=== PATIENT | female | born 1985 ===

== ENCOUNTER 2017-07-10 19:18 | Emergency (ER) | payer MEDICAID ==
[2017-07-10 19:49] VITALS: TEMP 98.4; O2SAT 98
[2017-07-10] MEDS ORDERED: Oxycodone/Acetaminophen 5/325 mg Tab PO STA (20:14)
[2017-07-10] MEDS ORDERED: Oxycodone/Acetaminophen 5/325 mg Tab ONE (20:19)
--- NOTE | 2017-07-10 20:20 | C.PDOC ---
History Of Present Illness 31 yr old female presents to the ER with complaints of chronic back pain. 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 Patient reports she recently moved to [place] from [place] and does not have a doctor yet. In [place] she took Oxycodone 15 mg PO Q4. Last MRI was last year, since she has had no new symptoms. Patient denies abdominal pain , diarrhea, dysuria, urinary or bowl incontinence, weakness or numbness. Time Seen by Provider: 07/10/17 19:54 Chief Complaint (Nursing): Back Pain History Per: Patient History/Exam Limitations: no limitations Onset/Duration Of Symptoms: Days Current Symptoms Are (Timing): Still Present Recent travel outside of the [place]: No Past Medical History Reviewed: Historical Data, Nursing Documentation, Vital Signs Vital Signs: Last Vital Signs Temp 98.4 F 07/10/17 19:42 Pulse 81 07/10/17 20:31 Resp 16 07/10/17 20:31 BP 124/85 07/10/17 20:31 Pulse Ox 98 07/10/17 21:11 - Medical History PMH: Back Problems Family History: States: No Known Family Hx - Social History Hx Alcohol Use: No Hx Substance Use: No - Immunization History Hx Tetanus Toxoid Vaccination: No Hx Influenza Vaccination: No Hx Pneumococcal Vaccination: No Review Of Systems Except As Marked, All Systems Reviewed And Found Negative. Gastrointestinal: Negative for: Abdominal Pain, Diarrhea Genitourinary: Negative for: Dysuria, Incontinence Musculoskeletal: Positive for: Back Pain (Chronic ) Neurological: Negative for: Weakness, Numbness Physical Exam - Physical Exam Appears: Non-toxic, No Acute Distress Skin: Warm, Dry, No Rash Head: Atraumatic, Normacephalic Eye(s): bilateral: Normal Inspection, EOMI Nose: Normal Oral Mucosa: Moist Neck: Normal ROM, Paracervical Tenderness, Supple Chest: Symmetrical, No Tenderness Cardiovascular: Rhythm Regular, No Murmur Respiratory: Normal Breath Sounds, No Rales, No Rhonchi, No Stridor, No Wheezing Gastrointestinal/Abdominal: Soft, No Tenderness Back: No CVA Tenderness, No Vertebral Tenderness, Other ((+) Left>Right paralumbar tenderness. Healed midline surgical incisions. ) Extremity: Normal ROM, No Swelling Neurological/Psych: Oriented x3, Normal Speech, Normal Motor Gait: Steady ED Course And Treatment O2 Sat by Pulse Oximetry: 98 (RA) Pulse Ox Interpretation: Normal Progress Note: BUSINESS CONTINUITY ANALYST was evaluated and no prescription was found. Discussed with patient that emergency room cannot refill medication for chronic pain. Patient understands she will receive 1 dose of pain medication and is to follow up with pain managment for further evaluation. Disposition - Disposition Referrals: Rolando Nelson MD [Staff Provider] - Nic Holt MD [Medical Doctor] - Disposition: HOME/ ROUTINE Disposition Time: 20:20 Condition: STABLE Additional Instructions: Follow up with primary medical doctor in 1-3 days without fail for further evaluation. Take medications as prescribed. Return to the emergency department at any time if symptoms persist or worsen. Prescriptions: Cyclobenzaprine [Cyclobenzaprine HCl] 10 mg PO TID #20 tab Naproxen [Naprosyn] 1 tab PO BID PRN #20 tab PRN Reason: Pain oxyCODONE/Acetaminophen [Percocet 5/325 mg Tab] 1 tab PO QID PRN #20 tab PRN Reason: Pain Instructions: Back Pain (ED) Forms: [facility] ([place]ali) - Clinical Impression Clinical Impression: Chronic back pain - PA / SKIMMER / Resident Statement MD/DO has reviewed & agrees with the documentation as recorded. - Scribe Statement The provider has reviewed the documentation as recorded by the Scribe Ashleigh Leong All medical record entries made by the Scribe were at my direction and personally dictated by me. I have reviewed the chart and agree that the record accurately reflects my personal performance of the history, physical exam, medical decision making, and the department course for this patient. I have also personally directed, reviewed, and agree with the discharge instructions and disposition.
[2017-07-10 20:32] VITALS: BP 124/85; PULSE 81; RESP 16
== END 2017-07-10 20:31 | disposition home or self-care (01) ==
LOC: C.ER 19:18
DX: G89.29 Other chronic pain (principal); M54.9 Dorsalgia, unspecified